=== PATIENT | male | born 1985 | race Caucasian/White ===

== ENCOUNTER 2017-12-24 23:05 | Inpatient (IN) | payer MEDICAID ==
[~2017-12-24] VITALS: Ht 188 cm; Wt 89.5 kg
[~2017-12-24 23:05] MED LIST: ATOM40CA PO; BUPR1FIL3 SL; CLON-529 PO; HYDR-3686 PO; ONDA4TAB9 SL; PANT-47 PO
[2017-12-24] MEDS ORDERED: normal saline 1000ML IV soln IVB ONE (23:10)
[2017-12-24] MEDS: LORazepam 2 mg/ml vial IV PRN ×5 (23:20→23:55)
[2017-12-24 23:39] LABS: BASOPHILS # (AUTO) 0.1 X10'3 (0-0.2); BASOPHILS % (AUTO) 0.6 % (0-1); EOSINOPHILS # (AUTO) 0.4 X10'3 (0-0.9); HEMATOCRIT 38.8 % (42.0-52.0); HEMOGLOBIN 13.6 g/dl (14.0-17.9); LYMPHOCYTES # (AUTO) 1.7 X10'3 (1.1-4.8); LYMPHOCYTES % (AUTO) 9.7 % (21-51); MEAN CORPUSCULAR HEMOGLOBIN 29.9 PG (27.0-31.0); MEAN CORPUSCULAR VOLUME 85.4 FL (78-98); MEAN PLATELET VOLUME 7.2 FL (7.4-10.4); MONOCYTES # (AUTO) 1.2 X10'3 (0-0.9); NEUTROPHILS # (AUTO) 14.3 X10'3 (1.8-7.7); NEUTROPHILS % (AUTO) 80.7 % (42-75); PLATELET COUNT 332 X10'3 (140-440); RED BLOOD COUNT 4.55 X10'6 (4.70-6.10); RED CELL DISTRIBUTION WIDTH 13.8 % (11.5-14.5); WHITE BLOOD COUNT 17.7 X10'3 (4.5-11.0)
[2017-12-24 23:54] LABS: INR 1.2 INR; PARTIAL THROMBOPLASTIN TIME 27 SECONDS (22-32); PROTHROMBIN TIME 12.6 SECONDS (9.0-12.0)
[2017-12-24 23:56] LABS: CLARITY,URINE SLIGHTLY CLOUDY (Clear); COLOR,URINE YELLOW (Yellow); GLUCOSE, URINE NEGATIVE (Neg); KETONES,URINE TRACE mg/dl (Neg); LEUKOCYTE ESTERASE ,URINE NEGATIVE (Neg); NITRITES, URINE NEGATIVE (Neg); OCCULT BLOOD,URINE NEGATIVE (Neg); PH,URINE 5.5 (4.8-8.0); PROTEIN,URINE 30 mg/dl (Neg)
[2017-12-24 23:59] LABS: UA COLLECTION TYPE STRAIGHT CATH; URINE AMPHETAMINE SCREEN POSITIVE (Neg); URINE BARBITUATE SCREEN NEGATIVE (Neg); URINE BENZODIAZEPINES SCREEN POSITIVE (Neg); URINE CANNABINOID SCREEN NEGATIVE (Neg); URINE COCAINE SCREEN NEGATIVE (Neg); URINE METHADONE SCREEN NEGATIVE (Neg); URINE OPIATE SCREEN POSITIVE (Neg); URINE PHENCYCLIDINE SCREEN NEGATIVE (Neg)
[2017-12-25] LABS: OSMOLALITY 311 MOSM/K (280-300)
[2017-12-25 00:01] LABS: HYALINE CASTS 0-3 /LPF (NEGATIVE); MUCUS STRANDS MANY /LPF (Neg); SQUAMOUS EPITHELIAL CELL,UR FEW /LPF (FEW)
[2017-12-25 00:02] LABS: BACTERIA,URINE FEW /HPF (Neg); RBC,URINE 0-2 /HPF (0-2); WBC,URINE 0-4 /HPF (0-4)
[2017-12-25] MEDS: LORazepam 2 mg/ml vial IV PRN ×11 (00:04→16:53)
[2017-12-25 00:10] LABS: ANION GAP 15 (8-16); BLOOD UREA NITROGEN 22 MG/DL (7-18); BUN/CREATININE RATIO 15.7 (5.4-32.0); CHLORIDE 108 MMOL/L (99-107); GLUCOSE 90 MG/DL (70-104); POTASSIUM 3.5 MMOL/L (3.5-5.1); SODIUM 147 MMOL/L (135-145); TOTAL CARBON DIOXIDE 24.1 MMOL/L (24-32)
[2017-12-25 00:11] LABS: ACETAMINOPHEN 43.8 UG/ML (10-30); ALBUMIN 4.3 G/DL (3.4-5.0); ALBUMIN/GLOBULIN RATIO 1.4 (1.1-1.5); ALKALINE PHOSPHATASE 84 IU/L (46-116); BILIRUBIN,TOTAL 0.8 MG/DL (0.1-1.0); CALCIUM 8.6 MG/DL (8.5-10.1); CREATINE KINASE 667 U/L (39-308); ETHANOL < 0.010 GM/DL (0.0-0.010); MAGNESIUM 1.9 MG/DL (1.5-2.4); TOTAL PROTEIN 7.3 G/DL (6.4-8.2); eGFR 60 ML/MIN
[2017-12-25 00:16] LABS: ALANINE AMINOTRANSFERASE 2078 U/L (12-78); ASPARTATE AMINO TRANSFERASE 1262 U/L (10-37)
[2017-12-25] MEDS ORDERED: LORazepam 2 mg/ml vial IV PRN (00:20)
[2017-12-25] MEDS ORDERED: ACETYLCYSTEINE IV ONE ×9 (00:40→08:00)
[2017-12-25] MEDS ORDERED: SODIUM CHLORIDE 0.45% IV ONE ×9 (00:40→08:00)
[2017-12-25] MEDS ORDERED: LORazepam 2 mg/ml vial IV ONE ×5 (02:25→07:00)
[2017-12-25] MEDS ORDERED: haloperidol lactate 5mg/ml inj IM ONE (03:35)
[2017-12-25] MEDS ORDERED: magnesium hydroxide 30ml (MOM) UD suspension PO PRN (04:15)
[2017-12-25] MEDS ORDERED: ondansetron/PF 4mg/2ml inj IV PRN (04:15)
[2017-12-25] MEDS ORDERED: potassium Cl 40MEQ/NS 500ml 500 ML IV PRN ×2 (04:15)
[2017-12-25] MEDS ORDERED: acetaminophen 325mg tablet PO PRN (04:15)
[2017-12-25] MEDS ORDERED: potassium Cl 20 mEq SR tablet PO PRN ×2 (04:15)
[2017-12-25] MEDS: K, MAG and/or Phos replacement - Verify level? MC SCH ×2 (04:15→11:02)
[2017-12-25] MEDS ORDERED: ziprasidone IM 20mg inj **IM only IM ONE (07:00)
[2017-12-25] MEDS ORDERED: diphenhydrAMINE 50 mg/ml inj IV ONE (07:00)
[2017-12-25] MEDS ORDERED: BUPR300T86 PO (07:57)
[2017-12-25] MEDS: pantoprazole 40 MG vial IV SCH (11:07)
[2017-12-25] MEDS: enoxaparin 40mg/0.4ml syringe SUBCUT SCH (11:09)
[2017-12-25 13:03] LABS: ALBUMIN 3.5 G/DL (3.4-5.0); ALBUMIN/GLOBULIN RATIO 1.2 (1.1-1.5); ALKALINE PHOSPHATASE 71 IU/L (46-116); ANION GAP 14 (8-16); BILIRUBIN,TOTAL 0.8 MG/DL (0.1-1.0); BLOOD UREA NITROGEN 18 MG/DL (7-18); BUN/CREATININE RATIO 22.5 (5.4-32.0); CALCIUM 7.9 MG/DL (8.5-10.1); CHLORIDE 114 MMOL/L (99-107); GLUCOSE 84 MG/DL (70-104); MAGNESIUM 2.3 MG/DL (1.5-2.4); PHOSPHORUS 3.5 MG/DL (2.3-4.5); POTASSIUM 3.9 MMOL/L (3.5-5.1); SODIUM 149 MMOL/L (135-145); TOTAL CARBON DIOXIDE 21.1 MMOL/L (24-32); TOTAL PROTEIN 6.5 G/DL (6.4-8.2); eGFR > 90 ML/MIN
[2017-12-25 13:08] LABS: ALANINE AMINOTRANSFERASE 1922 U/L (12-78); ASPARTATE AMINO TRANSFERASE 1401 U/L (10-37)
[2017-12-25 13:27] LABS: CREATINE KINASE 59824 U/L (39-308)
[2017-12-25 15:23] LABS: GLUCOSE, URINE NEGATIVE (Neg); KETONES,URINE >=80 mg/dl (Neg); LEUKOCYTE ESTERASE ,URINE NEGATIVE (Neg); NITRITES, URINE NEGATIVE (Neg); OCCULT BLOOD,URINE LARGE (Neg); PROTEIN,URINE 100 mg/dl (Neg)
[2017-12-25 15:28] LABS: CLARITY,URINE Slightly Cloudy (Clear); COLOR,URINE AMBER (Yellow); UA COLLECTION TYPE URINAL
[2017-12-25 15:30] LABS: RBC,URINE 0-2 /HPF (0-2); WBC,URINE 0-4 /HPF (0-4)
[2017-12-25 15:31] LABS: BACTERIA,URINE NONE SEEN /HPF (Neg); HYALINE CASTS 0-3 /LPF (NEGATIVE); MUCUS STRANDS MODERATE /LPF (Neg); SQUAMOUS EPITHELIAL CELL,UR NONE SEEN /LPF (FEW)
[2017-12-25 16:00] VITALS: BP 119/81
[2017-12-25] MEDS ORDERED: HYDROmorphone 1 mg/ml syringe IV PRN (16:40)
[2017-12-25 17:00] VITALS: BP 136/86
[2017-12-25 17:45] LABS: CKMB RELATIVE INDEX 0.2 RATIO (0-2.5)
[2017-12-25] MEDS: piperacillin/tazo 3.375gm/50ml 50 ML IV SCH ×2 (18:08→22:08)
[2017-12-25] MEDS ORDERED: sodium bicarbonate inj. 44.6 MEQ in sodium chloride 0.45% 1,000.4444 ML IV SCH (18:55)
[2017-12-25] MEDS ORDERED: sodium bicarbonate (8.4%) inj. 75 MEQ in sodium chloride 0.45% 1,025 ML IV SCH (18:55)
[2017-12-25] MEDS ORDERED: vancomycin/NS 1 GM ADD-VANTAGE 250 ML IV SCH (19:00)
[2017-12-25] MEDS: HYDROmorphone inj. 0.5 MG/0.5 ML DISP.SYRIN IV PRN ×2 (19:28→23:33)
[2017-12-25] MEDS: SODIUM CHLORIDE 0.45% IV SCH (19:48)
[2017-12-25] MEDS: SODIUM BICARBONATE IV SCH (19:48)
[2017-12-25] MEDS: vancomycin inj 1,250 MG in normal saline 250ml IV soln 250 ML IV SCH (19:48)
[2017-12-25 20:00] VITALS: BP 118/68
[2017-12-25 21:00] VITALS: BP 109/63
[2017-12-25 22:00] VITALS: BP 109/64
[2017-12-25 23:00] VITALS: BP 110/62
[2017-12-26] VITALS (19 sets, daily range): BP systolic 106–139; BP diastolic 63–79
[2017-12-26] MEDS: nicotine 21mg patch - 24 hr TD SCH ×2 (00:27→07:43)
[2017-12-26] MEDS: LORazepam 2 mg/ml vial IV PRN ×5 (01:30→22:41)
[2017-12-26] MEDS: vancomycin inj 1,250 MG in normal saline 250ml IV soln 250 ML IV SCH ×3 (02:03→18:54)
[2017-12-26] MEDS: piperacillin/tazo 3.375gm/50ml 50 ML IV SCH ×4 (03:31→20:41)
[2017-12-26] MEDS: HYDROmorphone inj. 0.5 MG/0.5 ML DISP.SYRIN IV PRN ×2 (04:13→09:13)
[2017-12-26] MEDS: SODIUM CHLORIDE 0.45% IV SCH ×2 (05:15→15:24)
[2017-12-26] MEDS: SODIUM BICARBONATE IV SCH ×2 (05:15→15:24)
[2017-12-26 06:50] LABS: ALBUMIN 2.8 G/DL (3.4-5.0); ALKALINE PHOSPHATASE 59 IU/L (46-116); ANION GAP 11 (8-16); ASPARTATE AMINO TRANSFERASE 718 U/L (10-37); BILIRUBIN,TOTAL 0.8 MG/DL (0.1-1.0); BLOOD UREA NITROGEN 10 MG/DL (7-18); BUN/CREATININE RATIO 12.5 (5.4-32.0); CALCIUM 7.5 MG/DL (8.5-10.1); CHLORIDE 108 MMOL/L (99-107); GLUCOSE 92 MG/DL (70-104); MAGNESIUM 2.1 MG/DL (1.5-2.4); PHOSPHORUS 2.8 MG/DL (2.3-4.5); POTASSIUM 3.1 MMOL/L (3.5-5.1); SODIUM 142 MMOL/L (135-145); TOTAL CARBON DIOXIDE 23.3 MMOL/L (24-32); TOTAL PROTEIN 5.5 G/DL (6.4-8.2); eGFR > 90 ML/MIN
[2017-12-26 06:51] LABS: ALANINE AMINOTRANSFERASE 1251 U/L (12-78)
[2017-12-26] MEDS: pantoprazole 40 MG vial IV SCH (07:35)
[2017-12-26] MEDS: enoxaparin 40mg/0.4ml syringe SUBCUT SCH (07:44)
[2017-12-26] MEDS: K, MAG and/or Phos replacement - Verify level? MC SCH (08:30)
[2017-12-26 08:36] LABS: BASOPHILS % (AUTO) 0.5 % (0-1); EOSINOPHILS # (AUTO) 0.2 X10'3 (0-0.9); EOSINOPHILS % (AUTO) 3.6 % (0-6); HEMATOCRIT 32.4 % (42.0-52.0); HEMOGLOBIN 11.5 g/dl (14.0-17.9); LYMPHOCYTES # (AUTO) 1.1 X10'3 (1.1-4.8); LYMPHOCYTES % (AUTO) 16.2 % (21-51); MEAN CORPUSCULAR HEMOGLOBIN 29.7 PG (27.0-31.0); MEAN CORPUSCULAR HGB CONC 35.5 % (33.0-36.5); MEAN CORPUSCULAR VOLUME 83.5 FL (78-98); MEAN PLATELET VOLUME 6.6 FL (7.4-10.4); MONOCYTES # (AUTO) 0.4 X10'3 (0-0.9); MONOCYTES % (AUTO) 6.1 % (2-12); NEUTROPHILS # (AUTO) 4.9 X10'3 (1.8-7.7); NEUTROPHILS % (AUTO) 73.6 % (42-75); PLATELET COUNT 178 X10'3 (140-440); RED BLOOD COUNT 3.88 X10'6 (4.70-6.10); WHITE BLOOD COUNT 6.6 X10'3 (4.5-11.0)
[2017-12-26] MEDS ORDERED: HYDROmorphone 1 mg/ml syringe IV PRN (09:44)
[2017-12-26] MEDS ORDERED: ondansetron 4mg rapidly disintigrating tab PO PRN (10:00)
[2017-12-26] MEDS ORDERED: hydrOXYzine 25 MG tablet PO PRN (10:00)
[2017-12-26 10:46] LABS: CREATINE KINASE 27733 U/L (39-308)
[2017-12-26] MEDS: HYDROmorphone 2mg/ml vial IV PRN ×3 (13:10→20:42)
[2017-12-26] MEDS: lactobacillus rhamnosus 10,000 MMU CELLS/CAPSULE PO SCH (16:58)
[2017-12-26] MEDS ORDERED: VANCOMYCIN LEVEL IV NR (17:30)
[2017-12-26] MEDS: buPROPion SR 150mg tablet PO SCH (20:41)
[2017-12-26] MEDS: cloNIDine 0.1 mg tablet PO SCH (20:41)
[2017-12-27] MEDS: HYDROmorphone 2mg/ml vial IV PRN ×2 (01:23→05:24)
[2017-12-27] MEDS: piperacillin/tazo 3.375gm/50ml 50 ML IV SCH ×4 (01:24→20:23)
[2017-12-27] MEDS: vancomycin inj 1,250 MG in normal saline 250ml IV soln 250 ML IV SCH ×2 (02:15→09:50)
[2017-12-27 06:00] VITALS: BP 133/80
[2017-12-27 06:30] LABS: HEMATOCRIT 29.8 % (42.0-52.0); HEMOGLOBIN 10.3 g/dl (14.0-17.9); MEAN CORPUSCULAR HEMOGLOBIN 29.6 PG (27.0-31.0); MEAN CORPUSCULAR HGB CONC 34.6 % (33.0-36.5); MEAN CORPUSCULAR VOLUME 85.5 FL (78-98); PLATELET COUNT 147 X10'3 (140-440); RED BLOOD COUNT 3.49 X10'6 (4.70-6.10); RED CELL DISTRIBUTION WIDTH 13.6 % (11.5-14.5); WHITE BLOOD COUNT 4.8 X10'3 (4.5-11.0)
[2017-12-27 06:31] LABS: BASOPHILS % (AUTO) 0.3 % (0-1); EOSINOPHILS # (AUTO) 0.2 X10'3 (0-0.9); EOSINOPHILS % (AUTO) 3.5 % (0-6); LYMPHOCYTES # (AUTO) 1.3 X10'3 (1.1-4.8); MEAN PLATELET VOLUME 6.9 FL (7.4-10.4); MONOCYTES # (AUTO) 0.4 X10'3 (0-0.9); MONOCYTES % (AUTO) 7.8 % (2-12); NEUTROPHILS % (AUTO) 62.4 % (42-75)
[2017-12-27 07:09] LABS: ALANINE AMINOTRANSFERASE 806 U/L (12-78); ALBUMIN 2.7 G/DL (3.4-5.0); ALBUMIN/GLOBULIN RATIO 0.9 (1.1-1.5); ALKALINE PHOSPHATASE 54 IU/L (46-116); ANION GAP 8 (8-16); ASPARTATE AMINO TRANSFERASE 422 U/L (10-37); BILIRUBIN,TOTAL 0.5 MG/DL (0.1-1.0); BLOOD UREA NITROGEN 4 MG/DL (7-18); BUN/CREATININE RATIO 6.7 (5.4-32.0); CHLORIDE 107 MMOL/L (99-107); GLUCOSE 101 MG/DL (70-104); MAGNESIUM 1.8 MG/DL (1.5-2.4); PHOSPHORUS 3.2 MG/DL (2.3-4.5); POTASSIUM 3.6 MMOL/L (3.5-5.1); SODIUM 143 MMOL/L (135-145); TOTAL CARBON DIOXIDE 27.8 MMOL/L (24-32); TOTAL PROTEIN 5.6 G/DL (6.4-8.2); eGFR > 90 ML/MIN
[2017-12-27] MEDS: buprenorphine/naloxone 8MG-2MG SUBlingual film SL SCH (07:55)
[2017-12-27] MEDS: pantoprazole 40mg Tablet.DR PO SCH (07:56)
[2017-12-27] MEDS: nicotine 21mg patch - 24 hr TD SCH (07:56)
[2017-12-27] MEDS: lactobacillus rhamnosus 10,000 MMU CELLS/CAPSULE PO SCH ×2 (07:56→16:50)
[2017-12-27] MEDS: cloNIDine 0.1 mg tablet PO SCH ×2 (07:56→20:22)
[2017-12-27] MEDS: LORazepam 2 mg/ml vial IV PRN ×4 (07:56→20:35)
[2017-12-27] MEDS: buPROPion SR 150mg tablet PO SCH ×2 (07:57→20:22)
[2017-12-27] MEDS: enoxaparin 40mg/0.4ml syringe SUBCUT SCH (07:58)
[2017-12-27] MEDS: K, MAG and/or Phos replacement - Verify level? MC SCH (08:00)
[2017-12-27 10:30] VITALS: BP 106/55
[2017-12-27] MEDS: ibuprofen 200mg tablet PO PRN ×2 (12:51→20:22)
[2017-12-27] MEDS: SODIUM CHLORIDE 0.45% IV SCH ×4 (13:41→22:15)
[2017-12-27] MEDS: SODIUM BICARBONATE IV SCH ×4 (13:41→22:15)
[2017-12-27 18:00] VITALS: BP 115/67
[2017-12-27 22:00] VITALS: BP 116/64
[2017-12-28] MEDS: piperacillin/tazo 3.375gm/50ml 50 ML IV SCH ×4 (04:18→20:12)
[2017-12-28 06:00] VITALS: BP 120/68
[2017-12-28 06:08] LABS: BASOPHILS % (AUTO) 0.5 % (0-1); EOSINOPHILS # (AUTO) 0.2 X10'3 (0-0.9); EOSINOPHILS % (AUTO) 4.7 % (0-6); HEMATOCRIT 29.8 % (42.0-52.0); HEMOGLOBIN 10.5 g/dl (14.0-17.9); LYMPHOCYTES # (AUTO) 1.1 X10'3 (1.1-4.8); LYMPHOCYTES % (AUTO) 34.4 % (21-51); MEAN CORPUSCULAR HEMOGLOBIN 29.9 PG (27.0-31.0); MEAN CORPUSCULAR HGB CONC 35.2 % (33.0-36.5); MEAN CORPUSCULAR VOLUME 85.1 FL (78-98); MEAN PLATELET VOLUME 6.8 FL (7.4-10.4); MONOCYTES # (AUTO) 0.3 X10'3 (0-0.9); MONOCYTES % (AUTO) 7.7 % (2-12); NEUTROPHILS # (AUTO) 1.8 X10'3 (1.8-7.7); NEUTROPHILS % (AUTO) 52.7 % (42-75); PLATELET COUNT 147 X10'3 (140-440); RED CELL DISTRIBUTION WIDTH 13.6 % (11.5-14.5); WHITE BLOOD COUNT 3.3 X10'3 (4.5-11.0)
[2017-12-28 06:50] LABS: ALANINE AMINOTRANSFERASE 638 U/L (12-78); ALBUMIN 2.7 G/DL (3.4-5.0); ALBUMIN/GLOBULIN RATIO 0.9 (1.1-1.5); ALKALINE PHOSPHATASE 51 IU/L (46-116); ANION GAP 8 (8-16); ASPARTATE AMINO TRANSFERASE 293 U/L (10-37); BILIRUBIN,TOTAL 0.4 MG/DL (0.1-1.0); BLOOD UREA NITROGEN 5 MG/DL (7-18); BUN/CREATININE RATIO 8.3 (5.4-32.0); CALCIUM 8.4 MG/DL (8.5-10.1); CHLORIDE 109 MMOL/L (99-107); GLUCOSE 102 MG/DL (70-104); MAGNESIUM 1.7 MG/DL (1.5-2.4); PHOSPHORUS 4.4 MG/DL (2.3-4.5); POTASSIUM 3.6 MMOL/L (3.5-5.1); SODIUM 146 MMOL/L (135-145); TOTAL CARBON DIOXIDE 29.4 MMOL/L (24-32); TOTAL PROTEIN 5.6 G/DL (6.4-8.2); eGFR > 90 ML/MIN
[2017-12-28 06:58] LABS: HIV ANTIBODY 1&2 RAPID NON-REACTIVE (Neg)
[2017-12-28 06:59] LABS: CREATINE KINASE 5509 U/L (39-308)
[2017-12-28] MEDS: lactobacillus rhamnosus 10,000 MMU CELLS/CAPSULE PO SCH ×2 (07:41→17:16)
[2017-12-28] MEDS: cloNIDine 0.1 mg tablet PO SCH ×2 (07:41→20:12)
[2017-12-28] MEDS: enoxaparin 40mg/0.4ml syringe SUBCUT SCH (07:41)
[2017-12-28] MEDS: pantoprazole 40mg Tablet.DR PO SCH (07:42)
[2017-12-28] MEDS: ibuprofen 200mg tablet PO PRN ×2 (07:42→17:16)
[2017-12-28] MEDS: buPROPion SR 150mg tablet PO SCH ×2 (07:42→20:12)
[2017-12-28] MEDS: nicotine 21mg patch - 24 hr TD SCH (07:43)
[2017-12-28] MEDS: SODIUM BICARBONATE IV SCH (07:46)
[2017-12-28] MEDS: SODIUM CHLORIDE 0.45% IV SCH (07:46)
[2017-12-28] MEDS: buprenorphine/naloxone 8MG-2MG SUBlingual film SL SCH (07:55)
[2017-12-28] MEDS: LORazepam 2 mg/ml vial IV PRN ×2 (07:55→12:22)
[2017-12-28] MEDS: K, MAG and/or Phos replacement - Verify level? MC SCH (08:00)
[2017-12-28 10:30] VITALS: BP 118/73
[2017-12-28] MEDS ORDERED: VANCOMYCIN LEVEL IV ONE (16:30)
[2017-12-28] MEDS: LORazepam 1 MG tablet PO PRN ×2 (17:16→21:26)
[2017-12-28 17:57] LABS: CLARITY,URINE Clear (Clear); COLOR,URINE Yellow (Yellow); GLUCOSE, URINE Negative (Neg); KETONES,URINE Negative (Neg); LEUKOCYTE ESTERASE ,URINE Negative (Neg); NITRITES, URINE Negative (Neg); OCCULT BLOOD,URINE Negative (Neg); PH,URINE 7.5 (4.8-8.0); PROTEIN,URINE Negative (Neg)
[2017-12-28 18:00] VITALS: BP 144/87
[2017-12-28 18:10] LABS: UA COLLECTION TYPE CLN CATCH MIDSTREAM
[2017-12-28 23:00] VITALS: BP 114/71
[2017-12-29] MEDS: vancomycin inj 1,250 MG in normal saline 250ml IV soln 250 ML IV SCH ×3 (00:14→17:04)
[2017-12-29] MEDS: piperacillin/tazo 3.375gm/50ml 50 ML IV SCH ×2 (03:21→08:05)
[2017-12-29] MEDS: LORazepam 1 MG tablet PO PRN ×4 (03:31→19:19)
[2017-12-29 05:38] LABS: BASOPHILS % (AUTO) 0.4 % (0-1); EOSINOPHILS # (AUTO) 0.2 X10'3 (0-0.9); EOSINOPHILS % (AUTO) 4.6 % (0-6); HEMATOCRIT 29.4 % (42.0-52.0); HEMOGLOBIN 10.4 g/dl (14.0-17.9); LYMPHOCYTES # (AUTO) 1.2 X10'3 (1.1-4.8); LYMPHOCYTES % (AUTO) 33.4 % (21-51); MEAN CORPUSCULAR HEMOGLOBIN 30.1 PG (27.0-31.0); MEAN CORPUSCULAR HGB CONC 35.5 % (33.0-36.5); MEAN CORPUSCULAR VOLUME 84.8 FL (78-98); MEAN PLATELET VOLUME 6.7 FL (7.4-10.4); MONOCYTES # (AUTO) 0.3 X10'3 (0-0.9); MONOCYTES % (AUTO) 8.7 % (2-12); NEUTROPHILS # (AUTO) 1.9 X10'3 (1.8-7.7); NEUTROPHILS % (AUTO) 52.9 % (42-75); PLATELET COUNT 139 X10'3 (140-440); RED BLOOD COUNT 3.46 X10'6 (4.70-6.10); RED CELL DISTRIBUTION WIDTH 13.6 % (11.5-14.5); WHITE BLOOD COUNT 3.6 X10'3 (4.5-11.0)
[2017-12-29 06:00] VITALS: BP 119/76
[2017-12-29 06:25] LABS: ALANINE AMINOTRANSFERASE 472 U/L (12-78); ALBUMIN 2.6 G/DL (3.4-5.0); ALBUMIN/GLOBULIN RATIO 0.9 (1.1-1.5); ALKALINE PHOSPHATASE 51 IU/L (46-116); ANION GAP 6 (8-16); ASPARTATE AMINO TRANSFERASE 209 U/L (10-37); BILIRUBIN,TOTAL 0.4 MG/DL (0.1-1.0); BLOOD UREA NITROGEN 6 MG/DL (7-18); BUN/CREATININE RATIO 7.5 (5.4-32.0); CALCIUM 8.5 MG/DL (8.5-10.1); CHLORIDE 108 MMOL/L (99-107); GLUCOSE 93 MG/DL (70-104); MAGNESIUM 1.8 MG/DL (1.5-2.4); PHOSPHORUS 5.2 MG/DL (2.3-4.5); POTASSIUM 3.9 MMOL/L (3.5-5.1); SODIUM 145 MMOL/L (135-145); TOTAL CARBON DIOXIDE 31.4 MMOL/L (24-32); TOTAL PROTEIN 5.5 G/DL (6.4-8.2); eGFR > 90 ML/MIN
[2017-12-29] MEDS: K, MAG and/or Phos replacement - Verify level? MC SCH (08:00)
[2017-12-29] MEDS: enoxaparin 40mg/0.4ml syringe SUBCUT SCH (08:01)
[2017-12-29] MEDS: buprenorphine/naloxone 8MG-2MG SUBlingual film SL SCH (08:02)
[2017-12-29] MEDS: nicotine 21mg patch - 24 hr TD SCH (08:03)
[2017-12-29] MEDS: buPROPion SR 150mg tablet PO SCH ×2 (08:04→19:14)
[2017-12-29] MEDS: lactobacillus rhamnosus 10,000 MMU CELLS/CAPSULE PO SCH ×2 (08:04→17:04)
[2017-12-29] MEDS: pantoprazole 40mg Tablet.DR PO SCH (08:04)
[2017-12-29] MEDS: cloNIDine 0.1 mg tablet PO SCH ×2 (08:04→19:14)
[2017-12-29] MEDS: ibuprofen 200mg tablet PO PRN ×2 (09:15→19:14)
[2017-12-29] MEDS ORDERED: mupirocin 2% ointment 22GM TP STA (09:23)
[2017-12-29] MEDS ORDERED: SUMAtriptan 5 mg Nasal Spray NS ONE (09:25)
[2017-12-29] MEDS: mupirocin 2% ointment 22GM TP SCH ×2 (09:31→20:00)
[2017-12-29 10:00] VITALS: BP 133/74
[2017-12-29] MEDS ORDERED: SUMAtriptan 25 MG tablet PO PRN (10:00)
[2017-12-29 18:00] VITALS: BP 129/71
[2017-12-29 22:00] VITALS: BP 128/75
[2017-12-30] MEDS ORDERED: VANCOMYCIN LEVEL IV ONE (00:30)
[2017-12-30 00:44] LABS: ALANINE AMINOTRANSFERASE 403 U/L (12-78); ALBUMIN 2.8 G/DL (3.4-5.0); ALBUMIN/GLOBULIN RATIO 0.9 (1.1-1.5); ALKALINE PHOSPHATASE 55 IU/L (46-116); ANION GAP 4 (8-16); ASPARTATE AMINO TRANSFERASE 148 U/L (10-37); BILIRUBIN,TOTAL 0.3 MG/DL (0.1-1.0); BLOOD UREA NITROGEN 9 MG/DL (7-18); CALCIUM 8.3 MG/DL (8.5-10.1); CHLORIDE 106 MMOL/L (99-107); GLUCOSE 98 MG/DL (70-104); PHOSPHORUS 4.3 MG/DL (2.3-4.5); POTASSIUM 4.1 MMOL/L (3.5-5.1); SODIUM 142 MMOL/L (135-145); TOTAL CARBON DIOXIDE 31.7 MMOL/L (24-32); TOTAL PROTEIN 5.8 G/DL (6.4-8.2); eGFR > 90 ML/MIN
[2017-12-30 00:51] LABS: BASOPHILS % (AUTO) 0.4 % (0-1); EOSINOPHILS # (AUTO) 0.1 X10'3 (0-0.9); HEMATOCRIT 32.8 % (42.0-52.0); HEMOGLOBIN 11.3 g/dl (14.0-17.9); LYMPHOCYTES # (AUTO) 1.5 X10'3 (1.1-4.8); LYMPHOCYTES % (AUTO) 32.5 % (21-51); MEAN CORPUSCULAR HEMOGLOBIN 29.8 PG (27.0-31.0); MEAN CORPUSCULAR HGB CONC 34.4 % (33.0-36.5); MEAN CORPUSCULAR VOLUME 86.8 FL (78-98); MEAN PLATELET VOLUME 7.3 FL (7.4-10.4); MONOCYTES # (AUTO) 0.4 X10'3 (0-0.9); MONOCYTES % (AUTO) 7.8 % (2-12); NEUTROPHILS # (AUTO) 2.6 X10'3 (1.8-7.7); NEUTROPHILS % (AUTO) 56.3 % (42-75); PLATELET COUNT 170 X10'3 (140-440); RED BLOOD COUNT 3.78 X10'6 (4.70-6.10); RED CELL DISTRIBUTION WIDTH 12.9 % (11.5-14.5); WHITE BLOOD COUNT 4.6 X10'3 (4.5-11.0)
[2017-12-30 01:13] LABS: VANCOMYCIN,TROUGH 17.4 UG/ML (6.0-14.0)
[2017-12-30] MEDS: vancomycin inj 1,250 MG in normal saline 250ml IV soln 250 ML IV SCH ×3 (01:21→17:09)
[2017-12-30] MEDS: LORazepam 1 MG tablet PO PRN ×5 (03:29→22:57)
[2017-12-30 05:00] VITALS: BP 138/75
[2017-12-30] MEDS: K, MAG and/or Phos replacement - Verify level? MC SCH (08:00)
[2017-12-30] MEDS: buPROPion SR 150mg tablet PO SCH ×2 (09:07→20:14)
[2017-12-30] MEDS: buprenorphine/naloxone 8MG-2MG SUBlingual film SL SCH (09:07)
[2017-12-30] MEDS: mupirocin 2% ointment 22GM TP SCH ×2 (09:07→20:21)
[2017-12-30] MEDS: cloNIDine 0.1 mg tablet PO SCH ×2 (09:07→20:14)
[2017-12-30] MEDS: pantoprazole 40mg Tablet.DR PO SCH (09:08)
[2017-12-30] MEDS: lactobacillus rhamnosus 10,000 MMU CELLS/CAPSULE PO SCH ×2 (09:08→17:09)
[2017-12-30] MEDS: enoxaparin 40mg/0.4ml syringe SUBCUT SCH (09:10)
[2017-12-30] MEDS: nicotine 21mg patch - 24 hr TD SCH (09:11)
[2017-12-30 10:00] VITALS: BP 138/91
[2017-12-30 11:13] LABS: HBSAG SCREEN Negative (Negative); HEP A AB, IGM Negative (Negative); HEP B CORE AB, IGM Negative (Negative); HEPATITIS C ANTIBODY 0.1 s/co ratio (0.0-0.9)
[2017-12-30 18:00] VITALS: BP 141/82
[2017-12-30] MEDS: ibuprofen 200mg tablet PO PRN (20:18)
[2017-12-30 22:00] VITALS: BP 133/74
[2017-12-31] MEDS: vancomycin inj 1,250 MG in normal saline 250ml IV soln 250 ML IV SCH ×3 (00:24→16:35)
[2017-12-31] MEDS: LORazepam 1 MG tablet PO PRN ×3 (05:07→12:43)
[2017-12-31 06:00] VITALS: BP 148/97
[2017-12-31 07:11] LABS: BASOPHILS % (AUTO) 0.3 % (0-1); EOSINOPHILS # (AUTO) 0.2 X10'3 (0-0.9); EOSINOPHILS % (AUTO) 3.2 % (0-6); HEMATOCRIT 36.2 % (42.0-52.0); HEMOGLOBIN 12.9 g/dl (14.0-17.9); LYMPHOCYTES # (AUTO) 1.1 X10'3 (1.1-4.8); LYMPHOCYTES % (AUTO) 16.2 % (21-51); MEAN CORPUSCULAR HEMOGLOBIN 30.3 PG (27.0-31.0); MEAN CORPUSCULAR HGB CONC 35.5 % (33.0-36.5); MEAN CORPUSCULAR VOLUME 85.1 FL (78-98); MEAN PLATELET VOLUME 6.8 FL (7.4-10.4); MONOCYTES # (AUTO) 0.5 X10'3 (0-0.9); MONOCYTES % (AUTO) 7.1 % (2-12); NEUTROPHILS # (AUTO) 4.8 X10'3 (1.8-7.7); NEUTROPHILS % (AUTO) 73.2 % (42-75); PLATELET COUNT 196 X10'3 (140-440); RED BLOOD COUNT 4.25 X10'6 (4.70-6.10); RED CELL DISTRIBUTION WIDTH 14.1 % (11.5-14.5); WHITE BLOOD COUNT 6.5 X10'3 (4.5-11.0)
[2017-12-31 07:34] LABS: ALANINE AMINOTRANSFERASE 365 U/L (12-78); ALBUMIN 3.3 G/DL (3.4-5.0); ALBUMIN/GLOBULIN RATIO 0.9 (1.1-1.5); ALKALINE PHOSPHATASE 62 IU/L (46-116); ANION GAP 6 (8-16); ASPARTATE AMINO TRANSFERASE 111 U/L (10-37); BILIRUBIN,TOTAL 0.4 MG/DL (0.1-1.0); BLOOD UREA NITROGEN 9 MG/DL (7-18); CALCIUM 8.6 MG/DL (8.5-10.1); CHLORIDE 106 MMOL/L (99-107); GLUCOSE 99 MG/DL (70-104); MAGNESIUM 1.9 MG/DL (1.5-2.4); PHOSPHORUS 3.6 MG/DL (2.3-4.5); SODIUM 141 MMOL/L (135-145); TOTAL CARBON DIOXIDE 28.8 MMOL/L (24-32); TOTAL PROTEIN 6.9 G/DL (6.4-8.2); eGFR > 90 ML/MIN
[2017-12-31] MEDS: K, MAG and/or Phos replacement - Verify level? MC SCH (08:00)
[2017-12-31] MEDS ORDERED: buprenorphine/naloxone 2-0.5mg sublingual tablet SL SCH (08:32)
[2017-12-31] MEDS: cloNIDine 0.1 mg tablet PO SCH ×2 (08:42→19:19)
[2017-12-31] MEDS: buPROPion SR 150mg tablet PO SCH ×2 (08:42→19:11)
[2017-12-31] MEDS: pantoprazole 40mg Tablet.DR PO SCH (08:42)
[2017-12-31] MEDS: lactobacillus rhamnosus 10,000 MMU CELLS/CAPSULE PO SCH ×2 (08:44→16:35)
[2017-12-31] MEDS: nicotine 21mg patch - 24 hr TD SCH (08:45)
[2017-12-31] MEDS: enoxaparin 40mg/0.4ml syringe SUBCUT SCH (08:46)
[2017-12-31] MEDS: mupirocin 2% ointment 22GM TP SCH ×2 (08:47→19:12)
[2017-12-31] MEDS: ibuprofen 200mg tablet PO PRN ×2 (09:04→19:11)
[2017-12-31 10:00] VITALS: BP 130/85
[2017-12-31] MEDS ORDERED: LORazepam 1 MG tablet PO PRN ×2 (16:30→19:55)
[2017-12-31 18:00] VITALS: BP 127/70
[2017-12-31 22:00] VITALS: BP 133/80
[2018-01-01 05:00] VITALS: BP 142/89
[2018-01-01 06:47] LABS: BASOPHILS % (AUTO) 0.3 % (0-1); EOSINOPHILS # (AUTO) 0.1 X10'3 (0-0.9); EOSINOPHILS % (AUTO) 1.9 % (0-6); HEMATOCRIT 35.8 % (42.0-52.0); HEMOGLOBIN 12.5 g/dl (14.0-17.9); LYMPHOCYTES # (AUTO) 1.2 X10'3 (1.1-4.8); LYMPHOCYTES % (AUTO) 18.2 % (21-51); MEAN CORPUSCULAR HEMOGLOBIN 30.2 PG (27.0-31.0); MEAN CORPUSCULAR HGB CONC 34.8 % (33.0-36.5); MEAN CORPUSCULAR VOLUME 86.7 FL (78-98); MEAN PLATELET VOLUME 6.8 FL (7.4-10.4); MONOCYTES # (AUTO) 0.6 X10'3 (0-0.9); MONOCYTES % (AUTO) 9.4 % (2-12); NEUTROPHILS # (AUTO) 4.7 X10'3 (1.8-7.7); NEUTROPHILS % (AUTO) 70.2 % (42-75); PLATELET COUNT 199 X10'3 (140-440); RED BLOOD COUNT 4.13 X10'6 (4.70-6.10); RED CELL DISTRIBUTION WIDTH 14.2 % (11.5-14.5); WHITE BLOOD COUNT 6.6 X10'3 (4.5-11.0)
[2018-01-01 07:10] LABS: ALANINE AMINOTRANSFERASE 278 U/L (12-78); ALBUMIN 3.2 G/DL (3.4-5.0); ALBUMIN/GLOBULIN RATIO 0.9 (1.1-1.5); ALKALINE PHOSPHATASE 65 IU/L (46-116); ANION GAP 6 (8-16); ASPARTATE AMINO TRANSFERASE 69 U/L (10-37); BILIRUBIN,TOTAL 0.4 MG/DL (0.1-1.0); BLOOD UREA NITROGEN 8 MG/DL (7-18); BUN/CREATININE RATIO 11.4 (5.4-32.0); CALCIUM 8.6 MG/DL (8.5-10.1); CHLORIDE 107 MMOL/L (99-107); CREATINE KINASE 243 U/L (39-308); GLUCOSE 97 MG/DL (70-104); MAGNESIUM 1.9 MG/DL (1.5-2.4); PHOSPHORUS 4.1 MG/DL (2.3-4.5); POTASSIUM 3.9 MMOL/L (3.5-5.1); SODIUM 142 MMOL/L (135-145); TOTAL CARBON DIOXIDE 29.4 MMOL/L (24-32); TOTAL PROTEIN 6.7 G/DL (6.4-8.2); eGFR > 90 ML/MIN
[2018-01-01] MEDS: K, MAG and/or Phos replacement - Verify level? MC SCH (08:00)
[2018-01-01] MEDS ORDERED: buprenorphine/naloxone 2-0.5mg sublingual tablet SL SCH (08:00)
[2018-01-01] MEDS: lactobacillus rhamnosus 10,000 MMU CELLS/CAPSULE PO SCH (08:27)
[2018-01-01] MEDS: pantoprazole 40mg Tablet.DR PO SCH (08:28)
[2018-01-01] MEDS: enoxaparin 40mg/0.4ml syringe SUBCUT SCH (08:28)
[2018-01-01] MEDS: buPROPion SR 150mg tablet PO SCH (08:28)
[2018-01-01] MEDS: cloNIDine 0.1 mg tablet PO SCH (08:28)
[2018-01-01] MEDS: mupirocin 2% ointment 22GM TP SCH (08:29)
[2018-01-01] MEDS: nicotine 21mg patch - 24 hr TD SCH (08:29)
[2018-01-01] MEDS: ibuprofen 200mg tablet PO PRN (08:41)
[2018-01-01 10:00] VITALS: BP 133/81
[2018-01-01] MEDS ORDERED: ATOM40CA PO (15:16)
[2018-01-01] MEDS ORDERED: NICO-687 TD (15:16)
[2018-01-01] MEDS ORDERED: ONDA4TAB9 SL (15:16)
[2018-01-01] MEDS ORDERED: HYDR-3686 PO (15:16)
[2018-01-01] MEDS ORDERED: CLON-529 PO (15:16)
== END 2018-01-01 15:48 | disposition home or self-care (01) | DRG 812 ==
LOC: ER 23:06 → ED HOLD 12-25 04:11 → EDBEDREQ 12-25 15:43 → CICU 2S 12-25 16:12 → ORTHO 4S 12-26 17:41
DX: T39.1X2A Poisoning by 4-Aminophenol derivatives, intentional self-harm, initial encounter (principal); M62.82 Rhabdomyolysis; Z78.1 Physical restraint status; T40.1X2A Poisoning by heroin, intentional self-harm, initial encounter; T43.622A Poisoning by amphetamines, intentional self-harm, initial encounter; F15.129 Other stimulant abuse with intoxication, unspecified; F12.90 Cannabis use, unspecified, uncomplicated; I25.10 Atherosclerotic heart disease of native coronary artery without angina pectoris; F10.10 Alcohol abuse, uncomplicated; F40.10 Social phobia, unspecified; G43.909 Migraine, unspecified, not intractable, without status migrainosus; F32.9 Major depressive disorder, single episode, unspecified; F41.9 Anxiety disorder, unspecified; G89.29 Other chronic pain; M54.9 Dorsalgia, unspecified; R74.0 Nonspecific elevation of levels of transaminase and lactic acid dehydrogenase [LDH]; Y92.89 Other specified places as the place of occurrence of the external cause; Z91.5 Personal history of self-harm; Z79.899 Other long term (current) drug therapy; Z88.6 Allergy status to analgesic agent; Z56.0 Unemployment, unspecified; Z82.49 Family history of ischemic heart disease and other diseases of the circulatory system
CPT/HCPCS: 36415; 71045; 73060; 73090; 73610; 80053; 80202; 80305; 80320; 80329; 81001; 81003; 82550; 82553; 82800; 82948; 83605; 83735; 83930; 84100; 85025; 85610; 85730; 86703; 86705; 86706; 86709; 86803; 87040; 87070; 87088; 87340; 93005; 93306; 96361; 96372; 96374; 96376; 99291; A6209; A6212; A6213; C9113; J0132; J1170; J1200; J1630; J1650; J2060; J2543; J3370; J3480; J3486; J7030